=== PATIENT | male | born 1975 | race Asian ===

== ENCOUNTER 2023-12-18 10:49 | Emergency (ER) | payer OTHER, SELFPAY ==
[2023-12-18 11:13] VITALS: BP 142/87
--- NOTE | 2023-12-18 13:15 | ED.GENMED ---
History of Present Illness
General
Chief Complaint: Eye Problems
Source: patient
Exam Limitations: none
Time Seen by Provider: 12/18/23 12:55
Nursing documentation reviewed up to this point in time: agreed with
Travel History
Have you had any contact with someone who has COVID-19?: No
Do you have any symptoms of coronavirus? Fever > 100 degrees, chills, cough, shortness of breath, sore throat, loss of taste or smell, muscle aches, or headache?: No
History of Present Illness
History of Present Illness:
Patient is a 48-year-old who presents to the ER complaining of left eye redness irritation for the past 2 days. He reports it is itchy. Denies any drainage. He denies any decreased vision, blurred vision. He denies any eye swelling. Denies
trauma. Denies fever or chills. He does not wear contacts.
Review of Systems
Review of Systems
Allergies reviewed?: Yes
All Other Systems: ROS reviewed and negative except as documented in HPI and ROS
Constitutional: Reports no symptoms
EENT: Reports other (left eye redness ; itchying;irritation)
Skin: Reports no symptoms
Neurological: Reports no symptoms; Denies dizzy or headache
Psychiatric: Reports no symptoms
Phy Exam
General Physical Exam
General Presentation: no apparent distress
General age: appears stated age
General Skin: warm and dry
General Habitus: normal
General Mental: alert
General Hydration: appears well hydrated
Eye Exam
Eye Exam: PERRL, EOMI and other (left eye w/ erythema to conjunctiva along medial aspect no corneal abrasion or dye uptake)
Able to obtain acuity?: Yes
Eye Exam General: PERRL: bilateral and EOM intact: bilateral
Pupil Exam: Bilateral: round and reactive
Neurological Exam
Neurological Exam: alert and oriented x3
Musculoskeletal Exam
Musculoskeletal Exam: full ROM
Skin Exam
Skin Exam: normal color and warm/dry
Psychiatric Exam
Psychiatric Exam: normal mood/affect
Course
Vital Signs
Initial and Last Documented VS:
Initial Vital Signs
Temp Pulse Resp BP Pulse Ox
98 F 87 16 142/87 98
12/18/23 11:13 12/18/23 11:13 12/18/23 11:13 12/18/23 11:13 12/18/23 11:13
Last Documented Vital Signs
Temp Pulse Resp BP Pulse Ox
98 F 87 16 142/87 98
12/18/23 11:13 12/18/23 11:13 12/18/23 11:13 12/18/23 11:13 12/18/23 11:13
MDM/Problems Addressed
Differential Diagnosis Includes:
Not limited to conjunctivitis, less likely foreign body less likely corneal abrasion
MDM/Problems Addressed:
Will treat for mild conjunctivitis antibiotic prescription sent to pharmacy. discussed outpatient follow-up if needed return if any worsening of symptoms.
*Critical Care Note
Total Time (30-74mins, 75-104mins- exclusive of procedures): Not Applicable
ED Attending Note
-
Portions of this chart may have been created with voice recognition software.� Occasional wrong word or��sound alike� substitutions may have occurred due to the inherent limitations of voice recognition software.
Discharge Plan
Departure
Patient Disposition: Home (Routine Discharge)
Date of Disposition: 12/18/23
Time of Disposition: 13:12
Patient with high blood pressure during this ER visit?: Yes
Condition: Fair
Covid-19: Not Applicable
Discharge Problem:
Conjunctivitis
Instructions: Conjunctivitis (Noninfectious Pinkeye) (DC), BLOOD PRESSURE
Prescriptions:
New
polymyxin B sulf-trimethoprim 10,000 unit- 1 mg/mL drops
1 drp ophthalmic (eye) Q3H Qty: 10 0RF
Rx Instructions:
1 drop into left eye every 3 hours for 7 days; maximum 6 doses per day
Referrals:
Shreya Golden MD [Active] -
Anirudh Vail CRNP [Family Provider] -
Activity Restrictions/Additional Instructions:
Use antibiotic drops as directed to left eye every 3 hours however maximum 6 drops/day. Follow-up with ophthalmology as needed. Return if any worsening of symptoms of decreased vision fever chills increased pain or any further concerns.
Interventions
Interventions:
*Risk Screen - Suicide Last Done: 12/18/23 11:13
*General Assessment Last Done: 12/18/23 11:13
*Neglect/Abuse Screening Last Done: 12/18/23 11:13
== END 2023-12-18 13:31 | disposition home or self-care (01) ==
LOC: EMR 10:49
PROVIDERS: EMERGENCY PHYSICIAN Emergency Medicine; FAMILY PHYSICIAN Nurse Practitioner Family
DX: H10.9 Unspecified conjunctivitis (principal)
CPT/HCPCS: 99282